=== PATIENT | female | born 1980 | race Caucasian/White ===

== ENCOUNTER 2023-02-14 23:21 | Emergency (ER) | payer OTHER, SELFPAY ==
[2023-02-14 23:42] VITALS: BP 133/87; PULSE 91; RESP 18; TEMP 36.1; O2SAT 98; BMI 30.5
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
== END 2023-02-15 00:55 | disposition home or self-care (01) ==
PROVIDERS: Emergency Provider Family Medicine
DX: S06.0X1A Concussion with loss of consciousness of 30 minutes or less, initial encounter (principal); R51.9 Headache, unspecified; M54.2 Cervicalgia; M25.519 Pain in unspecified shoulder; Y04.8XXA Assault by other bodily force, initial encounter
CPT/HCPCS: 99283; 99284